=== PATIENT | female | born 1960 | race Caucasian/White ===

== ENCOUNTER 2017-11-03 20:34 | Emergency (ER) | payer OTHER ==
[~2017-11-03] VITALS: Ht 157.5 cm; Wt 61.2 kg
[~2017-11-03 20:34] MED LIST: ANTACID GELATI1 EACH PO; B COMPLEX1 EACH PO; B-6 PO; BENTYL20 MG PO; BIO IDENTICAL HORM PO; CLINDAMYCIN PO; COQ-10100 MG PO; D3 PO; DHEA PO; DYMISTA; ESTRADIAL TOP; EVENING PRIMRO500 M1 PO; GARCINIA CAMBOGIA PO; GUAIFENESIN PO; MAGNESIUM; MAGNESIUM PO; MOVE FREE PO; MUCINEX DM ER1 EACH PO; MULTI-VITAMIN1 EACH PO; MULTIVITAMIN PO; NEXIUM40 MG PO; OMEGA 3 1,0001 EACH PO; OSTEO BI-FLEX1 EAC2 PO; PROBIOTIC PO; PROGESTERONE TOP; PROGESTERONE100 MG PO; THYROID SUPPORT PO; VALERIAN; VITAMIN C500 MG PO; VITAMIN D3400 UNIT PO; VITAMIN E PO; VITAMIN E400 UNIT PO; ZINC PO; ZYRTEC PO; ZYRTEC10 M3 PO; [UNRECOGNIZED DRUG - OTHER]; [UNRECOGNIZED DRUG - OTHER] PO; [UNRECOGNIZED DRUG - OTHER] PO; [UNRECOGNIZED DRUG - OTHER] PO; [UNRECOGNIZED DRUG - OTHER] PO; [UNRECOGNIZED DRUG - OTHER] PO; [UNRECOGNIZED DRUG - REMARK] PO
[2017-11-03] MEDS ORDERED: FAMOTIDINE 20 MG/2 ML VIAL IV STA (21:13)
[2017-11-03] MEDS ORDERED: DICYCLOMINE HCL 20 MG/2 ML VIAL IM ONE (21:15)
[2017-11-03] MEDS ORDERED: SODIUM CHLORIDE 0.9% 1000ML 1,000 ML IV SCH (21:15)
[2017-11-03] MEDS ORDERED: DICYCLOMINE HCL 20 MG TAB PO ONE (21:30)
== END 2017-11-03 23:01 | disposition home or self-care (01) ==
LOC: FSED 20:34
DX: R10.84 Generalized abdominal pain (principal); K58.9 Irritable bowel syndrome, unspecified; K21.9 Gastro-esophageal reflux disease without esophagitis
CPT/HCPCS: 74177; 80053; 81003; 85025; 99284; J0500

== ENCOUNTER → 2017-11-05 | Outpatient (CLI) | payer OTHER ==
[~2017-11-05] MED LIST changes: +DIATRIZOATE MEGL/DIATRIZOA SOD 30 ML BTL PO ONE
--- NOTE | 2017-11-05 16:02 | Diagnostic Imaging Report ---
PROCEDURE: CT ABDOMEN AND PELVIS WITHOUT CONTRAST TECHNIQUE: The abdomen and pelvis were scanned utilizing a multidetector helical scanner from the diaphragm to the lesser trochanter after the oral administration of Gastroview and Redicat. No IV contrast was administered. Coronal and sagittal multiplanar reformations were obtained. COMPARISON: Outside hospital CT of the abdomen and pelvis from 11/03/2017 INDICATIONS: left side abdominal pain oral only FINDINGS: ABSENCE OF INTRAVENOUS CONTRAST DECREASES SENSITIVITY FOR DETECTION OF FOCAL LESIONS AND VASCULAR PATHOLOGY. LOWER THORAX: Normal. HEPATOBILIARY: No focal hepatic lesions. The gallbladder is distended, but there are no radiopaque stones. No biliary ductal dilatation. SPLEEN: No splenomegaly. PANCREAS: No focal masses or ductal dilatation. ADRENALS: No adrenal nodules. KIDNEYS/URETERS: No hydronephrosis, stones, or solid mass lesions. PELVIC ORGANS/BLADDER: The uterus is absent. The bladder appears unremarkable. PERITONEUM / RETROPERITONEUM: No free air or fluid. LYMPH NODES: No lymphadenopathy. VESSELS: Very mild atherosclerotic calcification of the abdominal aorta. GI TRACT: No distention or wall thickening.. No evidence of obstruction. Orally administered contrast has reached all the way to the distal rectum by the time of the examination. There is a moderate stool burden throughout the colon. The appendix is not seen, but there is no suspicious inflammation in the right lower quadrant. BONES AND SOFT TISSUES: Unremarkable. IMPRESSION: Moderate stool burden throughout the colon. No other specific finding to explain the patient's left-sided abdominal pain. No evidence of obstruction. Oral contrast has reached all within the distal rectum by the time of the examination. Nonspecific distention of the gallbladder. No radiopaque stones or wall thickening. Dictated by: Otilio Navarrete M.D. on 11/05/2017 at 16:07 Electronically approved by: Otilio Navarrete M.D. on 11/05/2017 at 16:07
== END ==
LOC: CT 14:11
PROVIDERS: ATTEND Internal Medicine Gastroenterology
DX: R10.9 Unspecified abdominal pain (principal)
CPT/HCPCS: 74176

== ENCOUNTER 2017-11-08 10:57 | Inpatient (IN) | payer OTHER ==
[~2017-11-08] VITALS: Ht 157.5 cm; Wt 65.8 kg
[~2017-11-08 10:57] MED LIST changes: -DIATRIZOATE MEGL/DIATRIZOA SOD 30 ML BTL PO ONE
[2017-11-08 11:43] LABS: BASOPHILS % 0.4 % (0.0-1.0); EOSINOPHILS # (AUTO) 0.1 (0.0-0.4); EOSINOPHILS % 1.1 % (0.0-6.0); HEMATOCRIT 42.8 % (34.2-44.1); HEMOGLOBIN 14.9 g/dL (12.0-16.0); LYMPHOCYTES # (AUTO) 1.3 (1.0-3.2); MEAN CORPUSCULAR HEMOGLOBIN 31.2 pg (28-32); MEAN CORPUSCULAR HGB CONC 34.8 g/dL (31-35); MEAN CORPUSCULAR VOLUME 89.7 fL (81-99); MONOCYTES # (AUTO) 0.5 (0.2-0.8); MONOCYTES % 9.2 % (4.4-11.3); NEUTROPHILS # (AUTO) 3.4 (2.1-6.9); NEUTROPHILS % 63.9 % (38.7-80.0); PLATELET COUNT 282 x10e3/uL (140-360); RED BLOOD COUNT 4.77 x10e6/uL (3.6-5.1)
[2017-11-08] MEDS ORDERED: CARAFATE1 GM/10 ML PO (11:45)
[2017-11-08] MEDS ORDERED: DICYCLOMINE HCL20 MG PO (11:45)
[2017-11-08] MEDS ORDERED: ZOFRAN ODT4 MG PO (11:45)
[2017-11-08] MEDS ORDERED: LEVSIN0.125 MG PO (11:45)
[2017-11-08] MEDS ORDERED: CHLORDIAZEPOXI1 EACH PO (11:45)
[2017-11-08 11:56] LABS: BILIRUBIN,URINE NEGATIVE (NEGATIVE); CLARITY,URINE SL CLOUDY (CLEAR); COLOR,URINE YELLOW (YELLOW); KETONES,URINE NEGATIVE (NEGATIVE); LEUKOCYTE ESTERASE ,URINE 1+ (NEGATIVE); NITRITE,URINE NEGATIVE (NEGATIVE); PROTEIN,URINE DIPSTICK NEGATIVE (NEGATIVE); URINE UROBILINOGEN 0.2 mg/dL (0.2 - 1)
[2017-11-08 12:00] LABS: ALANINE AMINOTRANSFERASE 39 IU/L (0-55); ALBUMIN 4.4 g/dL (3.5-5.0); ALBUMIN/GLOBULIN RATIO 1.5 (0.8-2.0); ALKALINE PHOSPHATASE 73 IU/L (40-150); AMYLASE 50 U/L (25-125); ANION GAP 11.6 mmol/L (8-16); BLOOD UREA NITROGEN 6 mg/dL (7-26); BUN/CREATININE RATIO 7 (6-25); CALCIUM 9.8 mg/dL (8.4-10.2); CARBON DIOXIDE 27 mmol/L (22-29); CHLORIDE 102 mmol/L (98-107); CREATININE, SERUM 0.83 mg/dL (0.57-1.11); EST GLOMERULAR FILTRATION RATE > 60 ML/MIN (60-); GLUCOSE 95 mg/dL (74-118); LIPASE 31 U/L (8-78); POTASSIUM 3.6 mmol/L (3.5-5.1); SODIUM 137 mmol/L (136-145)
[2017-11-08 12:05] LABS: EPITHELIAL CELLS,URINE FEW /LPF; RBC,URINE 0-5 /HPF (0-5); WBC,URINE (MAN) 0-5 /HPF (0-5)
[2017-11-08] MEDS ORDERED: METRONIDAZOLE 500MG/NS 100ML 100 ML IV STA (12:21)
[2017-11-08] MEDS ORDERED: LEVOFLOXACIN 750MG/D5W 150ML 150 ML IV STA (12:21)
[2017-11-08] MEDS ORDERED: DIPHENHYDRAMINE HCL INJ 50 MG/ML VIAL IV ONE ×2 (12:30→18:00)
[2017-11-08] MEDS ORDERED: MORPHINE SULFATE 2 MG/ML SYR IV PRN (13:45)
[2017-11-08] MEDS ORDERED: MORPHINE SULFATE INJ 4 MG/ML INJ IV PRN (14:00)
[2017-11-08] MEDS: D5.45%NS/KCL 20MEQ 1,000 ML IV SCH (14:21)
[2017-11-08 16:00] VITALS: BP 117/87
[2017-11-08] MEDS ORDERED: SODIUM CHLORIDE 0.9% 250ML 250 ML ONE (17:50)
[2017-11-08] MEDS ORDERED: DIPHENHYDRAMINE HCL INJ 50 MG/ML VIAL IV PRN (18:00)
[2017-11-08] MEDS ORDERED: METRONIDAZOLE 500MG/NS 100ML IV SCH ×2 (18:00→22:00)
[2017-11-08] MEDS ORDERED: DIPHENHYDRAMINE HCL INJ 50 MG/ML VIAL IV SCH ×2 (18:00→22:00)
[2017-11-08 18:39] VITALS: BP 117/87
[2017-11-08 20:45] VITALS: BP 117/87
[2017-11-08 20:47] VITALS: BP 135/79
[2017-11-08] MEDS: METRONIDAZOLE 500MG/NS 100ML 100 ML IV SCH (22:00)
[2017-11-08] MEDS ORDERED: LIDOCAINE VISC 2% SOLN 15 ML UDC PO ONE ×2 (23:00→23:45)
[2017-11-08] MEDS ORDERED: MAGNESIUM/ALUMINUM/SIMETHICONE 30 ML UDC PO ONE (23:00)
[2017-11-08] MEDS ORDERED: BELLADONNA ALK/PHENOBARBITAL 5 ML UDC PO ONE (23:00)
[2017-11-09 00:22] VITALS: BP 129/79
[2017-11-09] MEDS ORDERED: PANTOPRAZOLE 40 MG 10ML VIAL IV STA (00:47)
[2017-11-09] MEDS ORDERED: DIPHENHYDRAMINE HCL INJ 50 MG/ML VIAL IV ONE ×2 (02:00→10:30)
[2017-11-09] MEDS: D5.45%NS/KCL 20MEQ 1,000 ML IV SCH ×2 (02:59→16:19)
[2017-11-09 04:00] VITALS: BP 140/71
[2017-11-09] MEDS: DIPHENHYDRAMINE HCL INJ 50 MG/ML VIAL IV SCH ×3 (05:40→21:12)
[2017-11-09] MEDS: METRONIDAZOLE 500MG/NS 100ML 100 ML IV SCH ×3 (05:44→21:12)
[2017-11-09 05:46] LABS: BASOPHILS % 0.5 % (0.0-1.0); EOSINOPHILS # (AUTO) 0.1 (0.0-0.4); EOSINOPHILS % 2.1 % (0.0-6.0); HEMATOCRIT 40.1 % (34.2-44.1); HEMOGLOBIN 13.9 g/dL (12.0-16.0); LYMPHOCYTES # (AUTO) 1.5 (1.0-3.2); LYMPHOCYTES % 34.6 % (18.0-39.1); MEAN CORPUSCULAR HEMOGLOBIN 31.3 pg (28-32); MEAN CORPUSCULAR HGB CONC 34.7 g/dL (31-35); MEAN CORPUSCULAR VOLUME 90.3 fL (81-99); MONOCYTES # (AUTO) 0.5 (0.2-0.8); MONOCYTES % 12.6 % (4.4-11.3); NEUTROPHILS # (AUTO) 2.1 (2.1-6.9); PLATELET COUNT 256 x10e3/uL (140-360); RED BLOOD COUNT 4.44 x10e6/uL (3.6-5.1)
[2017-11-09 06:07] LABS: ANION GAP 10.8 mmol/L (8-16); BLOOD UREA NITROGEN 7 mg/dL (7-26); BUN/CREATININE RATIO 9 (6-25); CALCIUM 9.1 mg/dL (8.4-10.2); CARBON DIOXIDE 27 mmol/L (22-29); CHLORIDE 104 mmol/L (98-107); CREATININE, SERUM 0.82 mg/dL (0.57-1.11); EST GLOMERULAR FILTRATION RATE > 60 ML/MIN (60-); GLUCOSE 100 mg/dL (74-118); POTASSIUM 3.8 mmol/L (3.5-5.1); SODIUM 138 mmol/L (136-145)
[2017-11-09 08:17] VITALS: BP 147/79
[2017-11-09] MEDS ORDERED: SINCALIDE 3 MCG/VIAL INJ ONE (09:27)
[2017-11-09] MEDS: PANTOPRAZOLE 40 MG 10ML VIAL IV SCH ×2 (11:45→21:11)
--- NOTE | 2017-11-09 12:35 | Diagnostic Imaging Report ---
Hepatobiliary Scan with Gallbladder Ejection Fraction Clinical information: 57 F with acute abdominal pain. Also upper abdominal pain x 2 weeks. Technique: Following intravenous administration of 6.3 millicuries of Tc-99m mebrofenin, dynamic images of the abdomen in the anterior projection were obtained through 60 minutes. Sincalide (CCK analog) 1.1 micrograms was administered intravenously over 30 minutes with additional imaging for determination of gallbladder ejection fraction. Discussion: Perfusion of the liver is normal. Extraction of tracer by the liver parenchyma is normal. Tracer appears promptly within the biliary tract. The gallbladder begins to fill by 51 minutes post injection of tracer and fills adequately. Tracer is seen in the small bowel by 22 minutes. The gallbladder ejection fraction with sincalide is 10% (normal greater than 40%). Impression: 1. Filling of the gallbladder excludes acute cystic duct obstruction/acute cholecystitis. 2. The decreased gallbladder ejection fraction of 10% supports the clinical diagnosis of chronic cholecystitis/gallbladder dyskinesia. Signed by: Dr. Karen Mac M.D. on 11/09/2017 12:32 PM
[2017-11-09] MEDS ORDERED: LEVOFLOXACIN 500MG/D5W 100ML IV SCH (13:00)
[2017-11-09] MEDS ORDERED: HYOSCYAMINE 0.125 MG TAB PO PRN (14:00)
[2017-11-09] MEDS ORDERED: MAGNESIUM HYDROXIDE 30 ML UDC PO PRN (14:30)
[2017-11-09] MEDS ORDERED: MIDAZOLAM HCL 5MG/ML 2ML VIAL ONE (14:48)
[2017-11-09] MEDS ORDERED: FENTANYL CITRATE/PF 100MCG/2 ML INJ ONE (14:48)
[2017-11-09] MEDS: SUCRALFATE 1 GM/10 ML SUSP PO SCH ×2 (15:00→16:30)
--- NOTE | 2017-11-09 15:36 | History and Physical ---
PRIMARY CARE PHYSICIAN: William FREELANCE COPYWRITER: Dr. Newby CHIEF COMPLAINT: Abdominal pain. HISTORY OF PRESENT ILLNESS: This is a 57-year-old woman with a history of gastritis and colitis, as well as IBS, now developing left-sided abdominal pain. Went to Dr. Newby's office and started on treatment for constipation. The patient had worsening symptoms, and went to [facility] urgent care. CT scan with contrast was done, which was negative. She went back to Dr. Newby and underwent barium swallow and further CT imaging again. The only finding was constipation. The patient was treated with regimen. Due to worsening symptoms, the patient went back to Dr. Newby's office, but due to hours of operation the patient decided to come to the hospital for further management. She described the pain as left-sided midabdominal pain some times radiating to the left back. No nausea or vomiting. Denies any diarrhea. PAST MEDICAL HISTORY: Gastritis, colitis, IBS, L4-L5 cyst, status post removal by Dr. Reed, ovarian cyst, status post resection. PAST SURGICAL HISTORY: Partial hysterectomy, lumbar cyst removal. ALLERGIES: PER ELECTRONIC MEDICAL RECORD. FAMILY HISTORY/SOCIAL HISTORY: Patient is . She has 2 children. No alcohol, illicits or cigarettes. The patient works as a nurse. MEDICATIONS: Per electronic medical record. REVIEW OF SYSTEMS: Denies any dizziness, chest pain, shortness of breath, fever, chills, sweats, nausea, vomiting, diarrhea, leg pain, or headache. PHYSICAL EXAMINATION VITAL SIGNS: Reviewed. GENERAL: A tired-appearing woman resting in bed. HEENT: Anicteric. Pupils respond to light. No oral lesions. CARDIOVASCULAR: Normal S1 and S2. LUNGS: Moderate breath sounds. ABDOMEN: Soft and nondistended. She has tenderness in the left midabdomen. She has mild epigastric discomfort. Obrien sign is negative. EXTREMITIES: No edema or calf tenderness. NEUROLOGICAL: Alert and oriented times 3. Moving all extremities. SKIN: Dry. PSYCHIATRIC: Normal affect. LABS: Reviewed. MEDICATIONS: Reviewed. ASSESSMENT: This is a 57-year-old woman with: 1. Chronic cholecystitis. 2. Gallbladder dyskinesis. 3. Gastroesophageal reflux disease. 4. History of colitis. 5. Irritable bowel syndrome. 6. Constipation. PLAN 1. Surgical consultation. 2. Bowel regimen for constipation. 3. GI consultation. 4. Continue GERD treatment. 5. Discontinue Levaquin. The patient has significant allergies and adverse reaction. This is not needed. 6. Will start bowel regimen. 7. SCD and PPI. 8. Disposition. Follow up. Job#: [id number] AXEL
[2017-11-09 16:57] VITALS: BP 146/85
[2017-11-09] MEDS: DOCUSATE SODIUM 100 MG CAP PO SCH (17:00)
[2017-11-09] MEDS: SENNOSIDES 8.6 MG TAB PO SCH (17:00)
[2017-11-09 20:07] VITALS: BP 142/99
[2017-11-09] MEDS ORDERED: DIPHENHYDRAMINE HCL 25 MG CAP PO PRN (20:15)
[2017-11-09 20:45] VITALS: BP 142/99
[2017-11-10] VITALS: BP 150/90
[2017-11-10] MEDS ORDERED: BISACODYL 5 MG TAB EC PO ONE ×7 (00:15→07:00)
[2017-11-10 04:00] VITALS: BP_SYST 143; BP_SYST 155; BP_DIAS 108; BP_DIAS 95
[2017-11-10] MEDS: ONDANSETRON HCL INJ 2 MG/ML VIAL IV PRN ×2 (04:55→10:40)
[2017-11-10] MEDS: DIPHENHYDRAMINE HCL INJ 50 MG/ML VIAL IV SCH ×3 (05:33→22:00)
[2017-11-10] MEDS: METRONIDAZOLE 500MG/NS 100ML 100 ML IV SCH ×3 (05:34→22:00)
[2017-11-10] MEDS: D5.45%NS/KCL 20MEQ 1,000 ML IV SCH ×2 (05:39→18:59)
[2017-11-10 08:00] VITALS: BP 141/95
[2017-11-10] MEDS: SUCRALFATE 1 GM/10 ML SUSP PO SCH ×3 (08:19→16:30)
[2017-11-10] MEDS: SENNOSIDES 8.6 MG TAB PO SCH ×2 (09:00→17:00)
[2017-11-10] MEDS: DOCUSATE SODIUM 100 MG CAP PO SCH ×2 (09:00→17:00)
[2017-11-10] MEDS: PANTOPRAZOLE 40 MG 10ML VIAL IV SCH ×2 (09:00→21:00)
[2017-11-10] MEDS ORDERED: POTASSIUM CHLORIDE 20MEQ/15ML UDC PO ONE (09:15)
[2017-11-10] MEDS ORDERED: PROMETHAZINE 12.5MG/ NACL 0.9% 12.5 MG/50 ML BAG IV PRN (09:45)
[2017-11-10] MEDS ORDERED: MAGNESIUM HYDROXIDE 30 ML UDC PO ONE ×2 (10:00)
[2017-11-10 12:00] VITALS: BP 155/108
--- NOTE | 2017-11-10 13:45 | Progress Note ---
DATE: November 10, 2017, Saturday MEDICINE PROGRESS NOTE TIME OF SERVICE: 12 noon. OVERNIGHT: No acute events. REVIEW OF SYSTEMS: Patient denies dizziness and chest pain. Denies shortness of breath, fever, chills, sweats, leg pain, blurry vision or headache. Patient with complaint of fatigue and nausea this day. OBJECTIVE VITAL SIGNS: T 98.6, P 65, respirations 18, BP 141/95. SpO2 95% on RA. GENERAL APPEARANCE: This is a tired, anxious-appearing middle-aged woman sitting supine in bed. HEENT: Normocephalic, PERRLA, oral mucosa dry and intact. Trachea midline without JVD. CARDIOVASCULAR: S1 and S2 without clicks, murmurs or rubs. LUNGS: Bilateral breath sounds clear with moderate excursion. ABDOMEN: Soft, nondistended. The patient with tenderness at LUQ and mid abdomen from epigastrium area to umbilicus. EXTREMITIES: Moves all. No edema or tenderness noted. NEUROLOGIC: No focal defects noted on gross examination. SKIN: Dry. PSYCHIATRIC: Normal affect with anxious countenance. LABS: WBC 4.2, H\T\H 13.9 and 40.1, platelets 256. Sodium 138, potassium 3.8, CL 104, CO2 27, gap 10.8, BUN 7, creatinine 0.82, GFR greater than 60. MEDICATIONS 1. Carafate 1 g a.c. 2. IVF D5-1/2 with 20 of potassium at 75 mL an hour. 3. Zofran 4 mg q.4 p.r.n. 4. PRN morphine q.4. 5. BID Colace. 6. BID Senokot. 7. Q.12 Protonix. 8. Q.8 IV Benadryl. 9. Q.8 IV Flagyl. 10. PRN Benadryl. 11. PRN MOM. 12. TID p.r.n. Levsin. ASSESSMENT AND PLAN: This is a 57-year-old woman with 1. Chronic cholecystitis. 2. Gallbladder dyskinesis. Surgical consult noted; intervention pending GI endoscopy findings on this day. 3. Gastroesophageal reflux disease. GI consult. Medications as above. 4. History of colitis. Continue Flagyl and discontinue Levaquin. 5. Irritable bowel syndrome. Patient is currently n.p.o. and treating symptomatically with p.r.n. medications. 6. Constipation. GI regimen. 7. Prophylaxis. SCDs and PPI. 8. Disposition. Will follow up a.m. lab values. Further GI consult is pending GI Surgery findings. Discussed with patient's spouse and RN at bedside, all questions answered. Dictated by: Willis Gavin NP Job#: [id number] EV
[2017-11-10] MEDS ORDERED: PROPOFOL IV EMULSION 10 MG/ML 50 ML VIAL ONE (16:51)
[2017-11-10] MEDS ORDERED: HYOSCYAMINE SULFATE 0.5 MG/ML AMP ONE (16:51)
[2017-11-10] MEDS ORDERED: ONDANSETRON HCL INJ 2 MG/ML VIAL ONE (18:22)
[2017-11-10] MEDS ORDERED: METOCLOPRAMIDE HCL 10 MG/2ML VIAL ONE (18:29)
[2017-11-10] MEDS ORDERED: HYOSCYAMINE 0.125 MG TAB PO ONE (18:30)
[2017-11-10] MEDS ORDERED: PROMETHAZINE HCL (IM) 25 MG/ML VIAL ONE (18:40)
--- NOTE | 2017-11-10 18:47 | Operative Report ---
DATE OF PROCEDURE: November 10, 2017 REFERRING PHYSICIAN: Dr. Rhoda El PROCEDURE PERFORMED: Colonoscopy with biopsies. INDICATIONS FOR COLONOSCOPY: Left upper quadrant pain, left-sided abdominal pain. MEDICATION: Patient was done under MAC. Please see anesthesiologist's note. PROCEDURE: With the patient in the left lateral decubitus position, the flexible fiberoptic Olympus colonoscope was inserted into the rectum with ease and advanced all the way to the cecum. The colon was excessively tortuous and irritable. The scope was then withdrawn slowly, and whatever was visualized of the mucosa overlying the cecum and ascending colon appeared to be within normal limits. There were some patchy mild inflammatory changes noted in the distal transverse, descending and sigmoid colon, and random biopsies were obtained. The rectum grossly appeared to be within normal limits. The scope was then retroflexed into the distal rectum, and small internal hemorrhoids were noted, none of which was actively bleeding. The scope was then straightened out. It was subsequently withdrawn. Patient tolerated the procedure well. IMPRESSION 1. Mild patchy colitis involving the distal transverse, descending and sigmoid colon, and random biopsies obtained. 2. Internal hemorrhoids, none actively bleeding. PLAN: Follow up histology. Initiate Levsinex 0.375 mg 1 p.o. b.i.d. and initiate a GI soft diet. Patient might benefit from a followup colonoscopy in 5 years. Job#: [id number] cc:RHODA EL DO
[2017-11-10 20:12] VITALS: BP 140/89
[2017-11-11 00:17] VITALS: BP 132/78
[2017-11-11 03:11] VITALS: BP 132/78
[2017-11-11 04:00] VITALS: BP 110/67
[2017-11-11] MEDS: DIPHENHYDRAMINE HCL INJ 50 MG/ML VIAL IV SCH (05:49)
[2017-11-11] MEDS: METRONIDAZOLE 500MG/NS 100ML 100 ML IV SCH (05:50)
[2017-11-11 06:17] LABS: ALANINE AMINOTRANSFERASE 28 IU/L (0-55); ALBUMIN/GLOBULIN RATIO 1.5 (0.8-2.0); ALKALINE PHOSPHATASE 67 IU/L (40-150); ANION GAP 12.9 mmol/L (8-16); BLOOD UREA NITROGEN 9 mg/dL (7-26); BUN/CREATININE RATIO 10 (6-25); CALCIUM 9.5 mg/dL (8.4-10.2); CARBON DIOXIDE 24 mmol/L (22-29); CHLORIDE 102 mmol/L (98-107); CREATININE, SERUM 0.89 mg/dL (0.57-1.11); EST GLOMERULAR FILTRATION RATE > 60 ML/MIN (60-); GLUCOSE 101 mg/dL (74-118); POTASSIUM 3.9 mmol/L (3.5-5.1); SODIUM 135 mmol/L (136-145)
[2017-11-11] MEDS: SUCRALFATE 1 GM/10 ML SUSP PO SCH ×2 (07:30→11:30)
[2017-11-11 08:00] VITALS: BP 118/81
[2017-11-11] MEDS: D5.45%NS/KCL 20MEQ 1,000 ML IV SCH (08:19)
[2017-11-11] MEDS: PANTOPRAZOLE 40 MG 10ML VIAL IV SCH (09:00)
[2017-11-11] MEDS: SENNOSIDES 8.6 MG TAB PO SCH (09:00)
[2017-11-11] MEDS ORDERED: HYOSCYAMINE 0.125 MG TAB PO SCH (09:00)
[2017-11-11] MEDS: DOCUSATE SODIUM 100 MG CAP PO SCH (09:00)
[2017-11-11] MEDS ORDERED: LEVSIN-SL0.125 MG PO (12:42)
--- NOTE | 2017-11-12 10:14 | Discharge Summary ---
PRINCIPAL DIAGNOSES: 1. Chronic cholecystitis. 2. Gallbladder dyskinesis. 3. Gastroesophageal reflux disease. 4. History of colitis. 5. Irritable bowel syndrome. 6. Constipation. SECONDARY DIAGNOSES: 1. Gastritis. 2. Colitis. 3. Irritable bowel syndrome. 4. L4-L5 cyst, status post removal by Dr. Reed. 5. Ovarian cyst, status post resection. SURGICAL HISTORY: Includes partial hysterectomy and lumbar cyst removal. CHIEF COMPLAINT: Abdominal pain. HPI: This 57-year-old woman with a history of gastritis and colitis as well as IBS, developed left-sided abdominal pain and proceeded to Dr. Newby's office to begin treatment for constipation. The patient had worsening symptoms and went to [facility] urgent care where CT with contrast was done. Imaging was found negative. She then went back to Dr. Newby and underwent a barium swallow with positive CT imaging again. The only finding was constipation. The patient was treated with a constipation regimen per Dr. Newby. However, due to worsening symptoms, patient went back to Dr. Newby's office. Due to hours of operation, patient decided to come to hospital for further management. She described the pain as left-sided mid abdominal pain, sometimes radiating to the left back without nausea, vomiting, or diarrhea. The patient was admitted for care. Surgical consult was noted. GI began to plan for endoscopy/colonoscopy. This was completed on the night of November 10 and was cleared for discharge. The patient's Levsin was adjusted to good effect per the patient. DISCHARGE MEDICATIONS: The patient was provided with a new prescription of Levsin sublingual 0.125 mg tabs, 3 tabs for a total of 0.37 mg p.o. b.i.d. However, pharmacy notified this provider that SL was not available and the patient was provided regular tabs. Additionally, the patient was to continue vitamin C 500 mg cap p.o. daily, Zyrtec 10 mg cap daily, chlordiazepoxide/clidinium 1 cap p.o. t.i.d., vitamin D3 400 units p.o. every day, Bentyl 20 mg tablet t.i.d., dicyclomine 20 mg p.o. t.i.d., Nexium 40 mg cap p.o. daily, MVI 1 tab p.o. daily, Zofran 4 mg tab b.i.d. p.r.n. nausea or vomiting, Carafate 1 g p.o. t.i.d., and vitamin D 400 unit capsules unknown daily. FOLLOWUP: The patient was instructed to follow up with Dr. Newby within 1 week, and follow GI soft diet per Keyonna's recommendations. Furthermore, the patient was instructed to follow up with PCP provider [facility], Dr. Martin Ervin within 2 to 3 weeks. CONDITION ON DISCHARGE: Patient was stable and left the facility without concern or complaint per nursing staff. Dictated by Willis Gavin NP LIA GUARDADO MD Job#: [id number]
== END 2017-11-11 13:23 | disposition home or self-care (01) | DRG 446 ==
LOC: ER 10:57 → ERHOLD 14:18 → MED/SURG2 15:15
PROVIDERS: ADMIT Internal Medicine; ATTEND Internal Medicine
PROC: 0DBE8ZX Excision of Large Intestine, Via Natural or Artificial Opening Endoscopic, Diagnostic (ICD-10-PCS; principal; 2017-11-10 17:04)
DX: K81.1 Chronic cholecystitis (principal); K82.8 Other specified diseases of gallbladder; K21.9 Gastro-esophageal reflux disease without esophagitis; K58.9 Irritable bowel syndrome, unspecified; K52.9 Noninfective gastroenteritis and colitis, unspecified
CPT/HCPCS: 36415; 45380; 78227; 80048; 80053; 81001; 82150; 83605; 83690; 85025; 87086; 88305; 99284; A9537; J1200; J1956; J1980; J2250; J2270; J2405; J2550; J2765; J2805; J7050

== ENCOUNTER 2018-01-17 13:18 | Emergency (ER) | payer OTHER ==
[~2018-01-17] VITALS: Ht 157.5 cm; Wt 58.1 kg
[~2018-01-17 13:18] MED LIST changes: +CARAFATE1 GM/10 ML PO; +CHLORDIAZEPOXI1 EACH PO; +DICYCLOMINE HCL20 MG PO; +LEVSIN-SL0.125 MG PO; +LEVSIN0.125 MG PO; +ZOFRAN ODT4 MG PO
[2018-01-17] MEDS ORDERED: SODIUM CHLORIDE 0.9% 1000ML 1,000 ML IV STA (13:31)
[2018-01-17] MEDS ORDERED: MORPHINE SULFATE INJ 4 MG/ML INJ IV STA (13:31)
[2018-01-17] MEDS ORDERED: ONDANSETRON HCL INJ 2 MG/ML VIAL IV STA (13:31)
[2018-01-17 14:26] LABS: BILIRUBIN,URINE NEGATIVE (NEGATIVE); CLARITY,URINE SL CLOUDY (CLEAR); COLOR,URINE YELLOW (YELLOW); KETONES,URINE NEGATIVE (NEGATIVE); LEUKOCYTE ESTERASE ,URINE TRACE (NEGATIVE); NITRITE,URINE NEGATIVE (NEGATIVE); PROTEIN,URINE DIPSTICK NEGATIVE (NEGATIVE); URINE UROBILINOGEN 0.2 mg/dL (0.2 - 1)
[2018-01-17 14:36] LABS: BACTERIA,URINE MANY /HPF; EPITHELIAL CELLS,URINE MANY /LPF; TRANSITIONAL EPI CELLS,URINE FEW
[2018-01-17] MEDS ORDERED: DIATRIZOATE MEGL/DIATRIZOA SOD 30 ML BTL PO ONE (14:36)
[2018-01-17 14:37] LABS: MUCUS,URINE MODERATE (RARE)
[2018-01-17 14:48] LABS: BASOPHILS % 0.2 % (0.0-1.0); EOSINOPHILS # (AUTO) 0.1 (0.0-0.4); EOSINOPHILS % 2.1 % (0.0-6.0); HEMATOCRIT 44.3 % (34.2-44.1); HEMOGLOBIN 15.2 g/dL (12.0-16.0); LYMPHOCYTES # (AUTO) 0.8 (1.0-3.2); LYMPHOCYTES % 19.2 % (18.0-39.1); MEAN CORPUSCULAR HEMOGLOBIN 31.3 pg (28-32); MEAN CORPUSCULAR HGB CONC 34.3 g/dL (31-35); MEAN CORPUSCULAR VOLUME 91.3 fL (81-99); MONOCYTES # (AUTO) 0.4 (0.2-0.8); MONOCYTES % 9.3 % (4.4-11.3); PLATELET COUNT 270 x10e3/uL (140-360); RED BLOOD COUNT 4.85 x10e6/uL (3.6-5.1); RED CELL DISTRIBUTION WIDTH 12.2 % (11.7-14.4)
[2018-01-17 15:07] LABS: ALANINE AMINOTRANSFERASE 18 IU/L (0-55); ALBUMIN 4.7 g/dL (3.5-5.0); ALBUMIN/GLOBULIN RATIO 1.6 (0.8-2.0); ALKALINE PHOSPHATASE 83 IU/L (40-150); AMYLASE 42 U/L (25-125); ANION GAP 17.1 mmol/L (8-16); BLOOD UREA NITROGEN 6 mg/dL (7-26); BUN/CREATININE RATIO 8 (6-25); CALCIUM 9.2 mg/dL (8.4-10.2); CARBON DIOXIDE 24 mmol/L (22-29); CHLORIDE 103 mmol/L (98-107); CREATININE, SERUM 0.79 mg/dL (0.57-1.11); EST GLOMERULAR FILTRATION RATE > 60 ML/MIN (60-); GLUCOSE 94 mg/dL (74-118); LIPASE 28 U/L (8-78); POTASSIUM 4.1 mmol/L (3.5-5.1); SODIUM 140 mmol/L (136-145)
--- NOTE | 2018-01-17 16:34 | Diagnostic Imaging Report ---
EXAM: CT Abdomen and Pelvis WITH contrast INDICATION: \S\r/o divertic COMPARISON: CT abdomen and pelvis 11/05/2017 and hepatobiliary scan 11/09/2017 TECHNIQUE: Abdomen and pelvis were scanned utilizing a multidetector helical scanner from the lung base to the pubic symphysis after administration of IV contrast. Coronal and sagittal reformations were obtained. Routine protocol was performed. Scan was performed when during portal venous phase. IV CONTRAST: 100 mL of Isovue-370 ORAL CONTRAST: Gastrografin RADIATION DOSE: Total DLP: 238.7 mGy*cm Estimated effective dose: (DLP x 0.015 x size factor) mSv COMPLICATIONS: None FINDINGS: LINES and TUBES: None. LOWER THORAX: Unremarkable HEPATOBILIARY: No focal hepatic lesions. No biliary ductal dilation. GALLBLADDER: No radio-opaque stones or sludge. No wall thickening. SPLEEN: No splenomegaly. PANCREAS: No focal masses or ductal dilatation. ADRENALS: No adrenal nodules KIDNEYS/URETERS: Kidneys enhance symmetrically. No hydronephrosis. No cystic or solid mass lesions. No stones. GI TRACT: No abnormal distention, wall thickening, or evidence of bowel obstruction. No diverticulosis or diverticulitis. Large amount of retained stool throughout the colon, specifically in the sigmoid. Appendix is normal. PELVIC ORGANS/BLADDER: Unremarkable. LYMPH NODES: No lymphadenopathy. VESSELS: Unremarkable. PERITONEUM / RETROPERITONEUM: No free air or fluid. BONES: Unremarkable. SOFT TISSUES: Unremarkable. IMPRESSION: No acute abnormality within the abdomen and pelvis. Specifically, no diverticulosis or diverticulitis. Signed by: Dr. Radha Raymundo M.D. on 01/17/2018 4:30 PM
[2018-01-17 18:07] VITALS: BP 150/96
[2018-01-17] MEDS ORDERED: SODIUM CHLORIDE 0.9% 50ML 50 ML ONE (19:04)
[2018-01-17] MEDS ORDERED: IOPAMIDOL 370 MG/ML 200 ML INFUS..BTL INJ ONE (19:04)
== END 2018-01-17 18:11 | disposition home or self-care (01) ==
LOC: ER 13:18
DX: R10.12 Left upper quadrant pain (principal); R11.0 Nausea; N39.0 Urinary tract infection, site not specified; K21.9 Gastro-esophageal reflux disease without esophagitis; Z87.19 Personal history of other diseases of the digestive system
CPT/HCPCS: 36415; 74177; 80053; 81001; 82150; 83690; 85025; 87086; 99284; J7030; Q9967

== ENCOUNTER 2024-10-01 01:03 | Emergency (ER) | payer SELFPAY ==
[~2024-10-01] VITALS: Ht 157.5 cm; Wt 58.1 kg
[2024-10-01 01:08] VITALS: TEMP 98.3
[2024-10-01 01:31] LABS: BASOPHILS % 0.3 % (0.0-1.0); EOSINOPHILS # (AUTO) 0.1 (0.0-0.4); EOSINOPHILS % 1.7 % (0.0-6.0); HEMATOCRIT 40.7 % (34.2-44.1); HEMOGLOBIN 14.1 g/dL (12.0-16.0); LYMPHOCYTES # (AUTO) 1.9 (1.0-3.2); LYMPHOCYTES % 33.6 % (18.0-39.1); MEAN CORPUSCULAR HEMOGLOBIN 31.8 pg (28-32); MEAN CORPUSCULAR HGB CONC 34.6 g/dL (31-35); MEAN CORPUSCULAR VOLUME 91.7 fL (81-99); MONOCYTES # (AUTO) 0.6 (0.2-0.8); MONOCYTES % 9.7 % (4.4-11.3); NEUTROPHILS # (AUTO) 3.1 (2.1-6.9); NEUTROPHILS % 54.4 % (38.7-80.0); PLATELET COUNT 262 x10e3/uL (140-360); RED BLOOD COUNT 4.44 x10e6/uL (3.6-5.1); RED CELL DISTRIBUTION WIDTH 11.9 % (11.7-14.4); WHITE BLOOD COUNT 5.77 x10e3/uL (4.8-10.8)
[2024-10-01] MEDS: SODIUM CHLORIDE 0.9% 1000ML 1,000 ML IV STA (01:31)
[2024-10-01 01:53] LABS: ALBUMIN 4.5 g/dL (3.5-5.0); ALBUMIN/GLOBULIN RATIO 1.6 (0.8-2.0); ANION GAP 14.6 mmol/L (8-16); BILIRUBIN,TOTAL 0.6 mg/dL (0.2-1.2); CALCIUM 9.2 mg/dL (8.4-10.2); CREATININE, SERUM 0.84 mg/dL (0.57-1.11); POTASSIUM 3.6 mmol/L (3.5-5.1); TOTAL PROTEIN 7.3 g/dL (6.5-8.1)
[2024-10-01 02:34] LABS: CLARITY,URINE CLEAR (CLEAR); COLOR,URINE YELLOW (YELLOW)
[2024-10-01 02:35] LABS: BILIRUBIN,URINE NEGATIVE (NEGATIVE); GLUCOSE, URINE NEGATIVE (NEGATIVE); KETONES,URINE TRACE (NEGATIVE); LEUKOCYTE ESTERASE ,URINE TRACE (NEGATIVE); NITRITE,URINE NEGATIVE (NEGATIVE); PH,URINE 7 (5 - 7); PROTEIN,URINE DIPSTICK NEGATIVE (NEGATIVE); URINE UROBILINOGEN 0.2 mg/dL (0.2 - 1)
[2024-10-01 02:36] LABS: BACTERIA,URINE MANY /HPF; EPITHELIAL CELLS,URINE FEW /LPF; RBC,URINE 21-50 /HPF (0-5)
[2024-10-01 03:15] VITALS: PULSE 75; RESP 16
[2024-10-01] MEDS ORDERED: KETOROLAC TROMETHAMINE 30 MG/ML VIAL IV STA (03:18)
[2024-10-01 03:30] VITALS: BP 167/98; PULSE 82; RESP 18; O2SAT 98
[2024-10-01] MEDS ORDERED: DICYCLOMINE HCL20 MG PO (03:34)
[2024-10-01] MEDS: DIPHENHYDRAMINE HCL INJ 50 MG/ML VIAL IV STA (03:44)
[2024-10-01] MEDS: DICYCLOMINE HCL 20 MG/2 ML VIAL IM STA (04:01)
== END 2024-10-01 04:23 | disposition home or self-care (01) ==
LOC: ER 01:08
DX: R10.32 Left lower quadrant pain (principal); K21.9 Gastro-esophageal reflux disease without esophagitis; Z87.19 Personal history of other diseases of the digestive system
CPT/HCPCS: 36415; 74176; 80053; 81001; 83690; 85025; 99284; J0500; J1200; J7030